=== PATIENT | male | born 1975 | race Caucasian/White ===

== ENCOUNTER 2016-05-28 14:05 | Emergency (ER) | payer OTHER ==
[~2016-05-28] VITALS: Ht 165.1 cm; Wt 59.4 kg
[~2016-05-28 14:05] MED LIST: ABILIFY10 MG PO; ALPRAZOLAM0.5 MG PO; ALPRAZOLAM1 MG PO; ATIVAN1 MG PO; Atarax,Vistaril PO; CLEOCIN150 MG PO; CLINDAMYCIN HC150 MG PO; CLINDAMYCIN HC300 MG PO; CYCLOBENZAPRINE10 MG PO; ENDOCET 5-3251 EACH PO; Keflex PO; LOPRESSOR25 MG PO; MOTRIN600 MG PO; NAPROSYN500 MG PO; NORCO 5/3251 TABLET PO; NORVASC5 MG PO; PERCOCET 5-3251 EACH PO; PERCOCET 5/31 TABLET PO; SERTRALINE HCL100 MG PO; ULTRAM50 MG PO; VIBRAMYCIN100 MG PO; VICODIN ES 71 TABLET PO; XANAX0.5 MG PO; XANAX1 MG PO; Xanax PO; oxyCODONE PO
[2016-05-28 15:24] LABS: CHLORIDE 101 mEq/L (99-109); POTASSIUM 4.5 mEq/L (3.7-5.4); SODIUM 140 mEq/L (136-147)
[2016-05-28 15:26] LABS: GLUCOSE 108 mg/dL (70-99)
[2016-05-28 15:28] LABS: ANION GAP 12 MEQ/L (2-14)
[2016-05-28 15:30] LABS: GFR ESTIMATE (CALCULATED) > 59 mL/min/
[2016-05-28 15:31] LABS: UREA NITROGEN (BUN) 13 mg/dL (9-23)
[2016-05-28 15:33] LABS: CREATINE KINASE 126 IU/L (1-294)
[2016-05-28] MEDS ORDERED: INDOCIN25 MG PO (15:42)
[2016-05-28 15:58] VITALS: BP 126/72
== END 2016-05-28 15:59 | disposition home or self-care (01) ==
LOC: EME 14:05
PROVIDERS: Physician Assistant
DX: M54.16 Radiculopathy, lumbar region (principal); I10 Essential (primary) hypertension; F17.200 Nicotine dependence, unspecified, uncomplicated; Z88.6 Allergy status to analgesic agent
CPT/HCPCS: 72100; 80048; 82550; 99281; 99284; J1885

== ENCOUNTER 2016-07-03 13:10 | Emergency (ER) | payer OTHER ==
[~2016-07-03] VITALS: Ht 165.1 cm; Wt 61.7 kg
[~2016-07-03 13:10] MED LIST changes: +INDOCIN25 MG PO
[2016-07-03 14:55] LABS: EOSINOPHIL (%) 1.7 % (0-5); EOSINOPHIL COUNT 0.1 K/uL (0-0.3); HEMATOCRIT 41.1 % (38.0-50.0); IMMATURE GRANULOCYTE (%) 0.1 % (0.0-0.7); IMMATURE GRANULOCYTE COUNT 0.1 K/uL; LYMPHOCYTE COUNT 2.1 K/uL (1.0-2.8); MCH 32.8 PG (29.0-34.0); MCHC 34.1 G/DL (30.0-36.0); MCV 96.3 FL (86-99); MEAN PLAT.VOLUME 9.4 uM^3 (9.0-12.4); MONOCYTE (%) 7.9 % (3-12); MONOCYTE COUNT 0.6 K/uL (0-0.8); NEUTROPHIL (%) 60.7 % (45-76); NEUTROPHIL COUNT 4.3 K/uL (1.8-6.4); PLATELET COUNT 221 K/uL (156-360); RED BLOOD COUNT 4.27 M/uL (4.00-5.50); WHITE BLOOD COUNT 7.1 K/uL (4.1-10.2)
[2016-07-03 15:01] LABS: ADD MIUA? YES; BILIRUBIN NEGATIVE; BLOOD NEGATIVE; COLOR YELLOW ((YELLOW)); GLUCOSE (STRIP) NEGATIVE; KETONES NEGATIVE; LEUKOCYTES NEGATIVE; NITRITE NEGATIVE; PROTEIN (STRIP) NEGATIVE; SPECIFIC GRAVITY 1.016 (1.000-1.030); UROBILINOGEN 0.2 MG/DL (0.2-1.0)
[2016-07-03 15:04] LABS: CHLORIDE 103 mEq/L (99-109); POTASSIUM 4.7 mEq/L (3.7-5.4); SODIUM 141 mEq/L (136-147)
[2016-07-03 15:06] LABS: GLUCOSE 114 mg/dL (70-99)
[2016-07-03 15:08] LABS: ANION GAP 7 MEQ/L (2-14); TOTAL BILIRUBIN 0.5 mg/dL (0.0-1.0)
[2016-07-03 15:09] LABS: AMPHETAMINE NEGATIVE (500 ng/mL); BENZODIAZEPINES NEGATIVE (150 ng/mL); COCAINE NEGATIVE (150 ng/mL); METHADONE PRESUMPTIVE POSITIVE (200 ng/mL); METHAMPHETAMINE NEGATIVE (500 ng/mL); OPIATES (MORPHINE) NEGATIVE (100 ng/mL); PHENCYCLIDINE NEGATIVE (25 ng/mL); THC CANNABINOIDS NEGATIVE (50 ng/mL); TRICYCLIC ANTIDEPRESSANTS NEGATIVE (300 ng/mL)
[2016-07-03 15:09] LABS: SERUM ETHYL ALCOHOL < 10 mg/dL
[2016-07-03 15:10] LABS: BARBITURATES NEGATIVE (200 ng/mL); INTERNAL CONTROLS VALID? YES; OXYCODONE NEGATIVE (100 ng/mL); PROPOXYPHENE NEGATIVE (300 ng/mL)
[2016-07-03 15:10] LABS: GFR ESTIMATE (CALCULATED) > 59 mL/min/
[2016-07-03 15:11] LABS: ALKALINE PHOSPHATASE 85 IU/L (3-129)
[2016-07-03 15:12] LABS: UREA NITROGEN (BUN) 10 mg/dL (9-23)
[2016-07-03 15:14] LABS: SALICYLATE < 5.0 MG/DL (15-30)
[2016-07-03 15:16] LABS: TROP-I INTERPRETATION NEGATIVE; TROPONIN-I < 0.01 ng/mL (0.0-0.30)
[2016-07-03 15:23] LABS: BACTERIA NONE SEEN /HPF; EPITHELIAL CELLS RARE /HPF; MUCUS TRACE /LPF; RED BLOOD CELLS 0-5 /HPF (0-5); UCUL ADDED? NO; WHITE BLOOD CELLS 0-5 /HPF (0-5)
[2016-07-03 15:44] VITALS: BP 128/76
== END 2016-07-03 15:45 | disposition home or self-care (01) ==
LOC: EME 13:10
PROVIDERS: Physician Assistant
DX: F41.9 Anxiety disorder, unspecified (principal); I10 Essential (primary) hypertension; F17.200 Nicotine dependence, unspecified, uncomplicated
CPT/HCPCS: 71020; 80053; 81003; 84484; 85025; 93005; 99281; 99284; G0480

== ENCOUNTER 2016-10-23 11:02 | Emergency (ER) | payer OTHER ==
[~2016-10-23] VITALS: Ht 165.1 cm; Wt 56.7 kg
[2016-10-23] MEDS ORDERED: BACTRIM,SEPT1 TABLET PO (12:29)
[2016-10-23 12:48] VITALS: BP 119/78
== END 2016-10-23 12:51 | disposition home or self-care (01) ==
LOC: EME 11:02
DX: L03.113 Cellulitis of right upper limb (principal); S60.221A Contusion of right hand, initial encounter; W18.30XA Fall on same level, unspecified, initial encounter; I10 Essential (primary) hypertension; F17.200 Nicotine dependence, unspecified, uncomplicated
CPT/HCPCS: 73130; 99281; 99283

== ENCOUNTER 2016-11-17 14:13 | Emergency (ER) | payer OTHER ==
[~2016-11-17] VITALS: Ht 165.1 cm; Wt 63.5 kg
[~2016-11-17 14:13] MED LIST changes: +BACTRIM,SEPT1 TABLET PO
[2016-11-17 14:38] VITALS: BP 131/80
== END 2016-11-17 14:39 | disposition home or self-care (01) ==
LOC: EME 14:13
DX: S01.81XA Laceration without foreign body of other part of head, initial encounter (principal); S61.211A Laceration without foreign body of left index finger without damage to nail, initial encounter; X99.8XXA Assault by other sharp object, initial encounter; Y93.01 Activity, walking, marching and hiking; Y92.410 Unspecified street and highway as the place of occurrence of the external cause
CPT/HCPCS: 99281; 99283

== ENCOUNTER 2016-12-14 14:49 | Emergency (ER) | payer OTHER ==
[~2016-12-14] VITALS: Ht 165.1 cm; Wt 58.0 kg
[2016-12-14 15:52] LABS: HEMATOCRIT 40.8 % (38.0-50.0); MCH 33.4 PG (29.0-34.0); MCHC 34.1 G/DL (30.0-36.0); MCV 98.1 FL (86-99); MEAN PLAT.VOLUME 10.2 uM^3 (9.0-12.4); PLATELET COUNT 222 K/uL (156-360); RBC DIS.WIDTH-CV 13.1 % (11.8-14.6); RED BLOOD COUNT 4.16 M/uL (4.00-5.50); WHITE BLOOD COUNT 6.4 K/uL (4.1-10.2)
[2016-12-14 16:09] LABS: CHLORIDE 107 mEq/L (99-109); POTASSIUM 3.6 mEq/L (3.7-5.4); SODIUM 141 mEq/L (136-147)
[2016-12-14 16:10] LABS: GLUCOSE 81 mg/dL (70-99)
[2016-12-14 16:12] LABS: ANION GAP 9 MEQ/L (2-14)
[2016-12-14 16:14] LABS: GFR ESTIMATE (CALCULATED) > 59 mL/min/; TROP-I INTERPRETATION NEGATIVE; TROPONIN-I < 0.01 ng/mL (0.0-0.30)
[2016-12-14 16:15] LABS: UREA NITROGEN (BUN) 7 mg/dL (9-23)
[2016-12-14] MEDS ORDERED: ATARAX,VISTARIL25 MG PO (17:13)
[2016-12-14 17:24] VITALS: BP 115/78
== END 2016-12-14 17:32 | disposition home or self-care (01) ==
LOC: EME 14:49
PROVIDERS: Emergency Medicine
DX: F43.10 Post-traumatic stress disorder, unspecified (principal); R55 Syncope and collapse; F41.1 Generalized anxiety disorder; F32.9 Major depressive disorder, single episode, unspecified; T42.4X6A Underdosing of benzodiazepines, initial encounter; Z91.128 Patient's intentional underdosing of medication regimen for other reason; F17.200 Nicotine dependence, unspecified, uncomplicated; Z88.6 Allergy status to analgesic agent
CPT/HCPCS: 71010; 80048; 84484; 85027; 90839; 93005; 99281; 99285; J7030

== ENCOUNTER 2016-12-23 09:50 | Emergency (ER) | payer OTHER ==
[~2016-12-23] VITALS: Ht 165.1 cm; Wt 55.2 kg
[~2016-12-23 09:50] MED LIST changes: +ATARAX,VISTARIL25 MG PO
[2016-12-23 11:35] LABS: EOSINOPHIL (%) 1.6 % (0-5); EOSINOPHIL COUNT 0.1 K/uL (0-0.3); IMMATURE GRANULOCYTE (%) 0.1 % (0.0-0.7); INSTRUMENT ABS NEUTROPHIL CT 3.6 K/uL; LYMPHOCYTE COUNT 2.8 K/uL (1.0-2.8); MCH 33.3 PG (29.0-34.0); MCHC 34.4 G/DL (30.0-36.0); MCV 96.8 FL (86-99); MEAN PLAT.VOLUME 9.8 uM^3 (9.0-12.4); MONOCYTE (%) 7.7 % (3-12); MONOCYTE COUNT 0.5 K/uL (0-0.8); NEUTROPHIL COUNT 3.6 K/uL (1.8-6.4); PLATELET COUNT 276 K/uL (156-360); RBC DIS.WIDTH-CV 12.7 % (11.8-14.6); RBC DIS.WIDTH-SD 45.5 % (39-53); RED BLOOD COUNT 4.44 M/uL (4.00-5.50); WHITE BLOOD COUNT 7.1 K/uL (4.1-10.2)
[2016-12-23 11:46] LABS: CHLORIDE 100 mEq/L (99-109); POTASSIUM 4.2 mEq/L (3.7-5.4); SODIUM 137 mEq/L (136-147)
[2016-12-23 11:48] LABS: GLUCOSE 103 mg/dL (70-99)
[2016-12-23 11:49] LABS: ANION GAP 10 MEQ/L (2-14)
[2016-12-23 11:50] LABS: TOTAL BILIRUBIN 0.6 mg/dL (0.0-1.0)
[2016-12-23 11:51] LABS: ALKALINE PHOSPHATASE 63 IU/L (3-129)
[2016-12-23 11:52] LABS: GFR ESTIMATE (CALCULATED) > 59 mL/min/
[2016-12-23 11:53] LABS: UREA NITROGEN (BUN) 23 mg/dL (9-23)
[2016-12-23 11:55] LABS: TROP-I INTERPRETATION NEGATIVE; TROPONIN-I < 0.01 ng/mL (0.0-0.30)
[2016-12-23 12:29] VITALS: BP 107/67
[2016-12-23] MEDS ORDERED: ZOFRAN ODT4 MG PO (12:30)
[2016-12-23] MEDS ORDERED: VENTOLIN HFA18 GM IH (12:30)
[2016-12-23] MEDS ORDERED: PREDNISONE50 MG PO (12:30)
== END 2016-12-23 12:29 | disposition home or self-care (01) ==
LOC: EME 09:50
PROVIDERS: Physician Assistant Medical
DX: J98.01 Acute bronchospasm (principal); R11.10 Vomiting, unspecified; J45.909 Unspecified asthma, uncomplicated; I10 Essential (primary) hypertension; F17.200 Nicotine dependence, unspecified, uncomplicated
CPT/HCPCS: 71020; 80053; 84484; 85025; 93005; 99281; 99283; J2405; J7030

== ENCOUNTER 2017-02-13 14:21 | Emergency (ER) | payer OTHER ==
[~2017-02-13] VITALS: Ht 165.1 cm; Wt 57.5 kg
[~2017-02-13 14:21] MED LIST changes: +PREDNISONE50 MG PO; +VENTOLIN HFA18 GM IH; +ZOFRAN ODT4 MG PO
[2017-02-13 14:48] VITALS: BP 117/75
[2017-02-13] MEDS ORDERED: NEURONTIN300 MG PO (17:20)
== END 2017-02-13 17:43 | disposition home or self-care (01) ==
LOC: EME 14:21
DX: S00.81XA Abrasion of other part of head, initial encounter (principal); S70.312A Abrasion, left thigh, initial encounter; S80.811A Abrasion, right lower leg, initial encounter; X99.1XXA Assault by knife, initial encounter; F17.200 Nicotine dependence, unspecified, uncomplicated
CPT/HCPCS: 99281; 99284; Q0177

== ENCOUNTER 2017-05-28 18:42 | Emergency (ER) | payer OTHER ==
[~2017-05-28] VITALS: Ht 165.1 cm; Wt 58.8 kg
[~2017-05-28 18:42] MED LIST changes: +NEURONTIN300 MG PO
[2017-05-28] MEDS ORDERED: MOTRIN600 MG PO (21:01)
[2017-05-28 21:30] VITALS: BP 108/70
[2017-05-29] MEDS ORDERED: MOTRIN600 MG PO (15:04)
== END 2017-05-28 21:39 | disposition home or self-care (01) ==
LOC: EME 18:42
DX: S00.83XA Contusion of other part of head, initial encounter (principal); S00.81XA Abrasion of other part of head, initial encounter; M25.531 Pain in right wrist; M79.641 Pain in right hand; X99.8XXA Assault by other sharp object, initial encounter; Y07.9 Unspecified perpetrator of maltreatment and neglect; I10 Essential (primary) hypertension; F32.9 Major depressive disorder, single episode, unspecified; F41.9 Anxiety disorder, unspecified; F17.200 Nicotine dependence, unspecified, uncomplicated; Z88.5 Allergy status to narcotic agent; Z88.8 Allergy status to other drugs, medicaments and biological substances
CPT/HCPCS: 70450; 70486; 72125; 73110; 73130; 99281; 99284

== ENCOUNTER 2017-05-29 10:59 | Emergency (ER) | payer OTHER ==
[~2017-05-29] VITALS: Ht 165.1 cm; Wt 61.6 kg
[2017-05-29] MEDS ORDERED: MOTRIN600 MG PO (15:04)
[2017-05-29 15:19] VITALS: BP 116/93
== END 2017-05-29 15:20 | disposition home or self-care (01) ==
LOC: EME 10:59
DX: M25.531 Pain in right wrist (principal); Y09 Assault by unspecified means; F41.9 Anxiety disorder, unspecified; F43.10 Post-traumatic stress disorder, unspecified; Z88.5 Allergy status to narcotic agent
CPT/HCPCS: 99281; 99284

== ENCOUNTER 2017-06-29 06:18 | Emergency (ER) | payer OTHER ==
[~2017-06-29] VITALS: Ht 165.1 cm; Wt 57.1 kg
[2017-06-29 08:23] LABS: BASOPHIL (%) 0.3 % (0-1); EOSINOPHIL (%) 0.9 % (0-5); EOSINOPHIL COUNT 0.1 K/uL (0-0.3); HEMATOCRIT 40.6 % (38.0-50.0); HEMOGLOBIN 13.9 G/DL (12.5-16.6); IMMATURE GRANULOCYTE (%) 0.2 % (0.0-0.7); LYMPHOCYTE (%) 11.6 % (15-42); LYMPHOCYTE COUNT 1.2 K/uL (1.0-2.8); MCH 33.4 PG (29.0-34.0); MCHC 34.2 G/DL (30.0-36.0); MCV 97.6 FL (86-99); MONOCYTE (%) 7.2 % (3-12); MONOCYTE COUNT 0.8 K/uL (0-0.8); NEUTROPHIL (%) 79.8 % (45-76); NEUTROPHIL COUNT 8.4 K/uL (1.8-6.4); PLATELET COUNT 182 K/uL (156-360); RBC DIS.WIDTH-SD 46.7 % (39-53); RED BLOOD COUNT 4.16 M/uL (4.00-5.50); WHITE BLOOD COUNT 10.5 K/uL (4.1-10.2)
[2017-06-29 08:35] LABS: CHLORIDE 108 mEq/L (99-109); POTASSIUM 4.1 mEq/L (3.7-5.4); SODIUM 142 mEq/L (136-147)
[2017-06-29 08:36] LABS: GLUCOSE 106 mg/dL (70-99)
[2017-06-29 08:40] LABS: CREATININE 0.7 mg/dL (0.6-1.3); GFR ESTIMATE (CALCULATED) > 59 mL/min/ (58.99-99999); SERUM ETHYL ALCOHOL < 10 mg/dL
[2017-06-29 08:41] LABS: UREA NITROGEN (BUN) 13 mg/dL (9-23)
[2017-06-29 08:43] LABS: CREATINE KINASE 123 IU/L (1-294)
[2017-06-29 08:48] LABS: TROP-I INTERPRETATION NEGATIVE; TROPONIN-I < 0.01 ng/mL (0.0-0.30)
[2017-06-29 09:18] LABS: AMPHETAMINE NEGATIVE (500 ng/mL); BENZODIAZEPINES PRESUMPTIVE POSITIVE (150 ng/mL); COCAINE NEGATIVE (150 ng/mL); METHAMPHETAMINE NEGATIVE (500 ng/mL); OPIATES (MORPHINE) NEGATIVE (100 ng/mL); PHENCYCLIDINE NEGATIVE (25 ng/mL); THC CANNABINOIDS NEGATIVE (50 ng/mL)
[2017-06-29 09:19] LABS: BARBITURATES NEGATIVE (200 ng/mL); BUPRENORPHINE NEGATIVE (10 ng/mL); METHADONE PRESUMPTIVE POSITIVE (200 ng/mL); OXYCODONE NEGATIVE (100 ng/mL); PROPOXYPHENE NEGATIVE (300 ng/mL); TRICYCLIC ANTIDEPRESSANTS PRESUMPTIVE POSITIVE (300 ng/mL)
[2017-06-29 11:28] LABS: BENZODIAZEPINES, URINE SCREEN POSITIVE (200 ng/mL)
[2017-06-29 13:53] VITALS: BP 101/73
== END 2017-06-29 13:58 | disposition home or self-care (01) ==
LOC: EME → EDBD 06:18 → EME 06:18
PROVIDERS: Emergency Medicine
DX: S00.212A Abrasion of left eyelid and periocular area, initial encounter (principal); W01.0XXA Fall on same level from slipping, tripping and stumbling without subsequent striking against object, initial encounter; I10 Essential (primary) hypertension; F32.9 Major depressive disorder, single episode, unspecified; F41.9 Anxiety disorder, unspecified; F43.10 Post-traumatic stress disorder, unspecified; F17.200 Nicotine dependence, unspecified, uncomplicated; Z88.5 Allergy status to narcotic agent
CPT/HCPCS: 70450; 80048; 82550; 84484; 84999; 85025; G0480

== ENCOUNTER 2017-08-18 13:11 | Emergency (ER) | payer OTHER ==
[~2017-08-18] VITALS: Ht 165.1 cm; Wt 61.1 kg
[2017-08-18 13:52] LABS: HEMATOCRIT 40.7 % (38.0-50.0); MCHC 34.4 G/DL (30.0-36.0); MCV 98.8 FL (86-99); PLATELET COUNT 248 K/uL (156-360); RBC DIS.WIDTH-CV 13.5 % (11.8-14.6); RBC DIS.WIDTH-SD 49.7 % (39-53); RED BLOOD COUNT 4.12 M/uL (4.00-5.50); WHITE BLOOD COUNT 10.3 K/uL (4.1-10.2)
[2017-08-18 14:01] LABS: CHLORIDE 103 mEq/L (99-109); POTASSIUM 4.3 mEq/L (3.7-5.4); SODIUM 140 mEq/L (136-147)
[2017-08-18 14:03] LABS: GLUCOSE 107 mg/dL (70-99)
[2017-08-18 14:07] LABS: CREATININE 0.8 mg/dL (0.6-1.3); GFR ESTIMATE (CALCULATED) > 59 mL/min/ (58.99-99999); UREA NITROGEN (BUN) 7 mg/dL (9-23)
[2017-08-18 16:31] LABS: ALBUMIN 4.2 g/dL (3.2-4.8)
[2017-08-18 16:33] LABS: APPEARANCE CLEAR ((CLEAR)); BILIRUBIN NEGATIVE; BLOOD NEGATIVE; COLOR YELLOW ((YELLOW)); GLUCOSE (STRIP) NEGATIVE; KETONES NEGATIVE; LEUKOCYTES NEGATIVE; NITRITE NEGATIVE; PROTEIN (STRIP) NEGATIVE; SPECIFIC GRAVITY 1.008 (1.000-1.030); UCUL ADDED? NO
[2017-08-18 16:34] LABS: TOTAL PROTEIN 7.2 g/dL (6.4-8.3)
[2017-08-18 16:35] LABS: TOTAL BILIRUBIN 0.1 mg/dL (0.0-1.0)
[2017-08-18 16:36] LABS: ALKALINE PHOSPHATASE 65 IU/L (3-129)
[2017-08-18 16:39] LABS: AST (GOT) 39 IU/L (2-34); DIRECT BILIRUBIN 0.1 mg/dL (0.0-0.3)
[2017-08-18 16:40] LABS: ALT (GPT) 49 IU/L (3-49)
[2017-08-18 17:55] VITALS: BP 121/79
== END 2017-08-18 17:55 | disposition home or self-care (01) ==
LOC: EME 13:11
DX: S61.201A Unspecified open wound of left index finger without damage to nail, initial encounter (principal); X17.XXXA Contact with hot engines, machinery and tools, initial encounter; Y99.0 Civilian activity done for income or pay; R19.7 Diarrhea, unspecified; Z71.6 Tobacco abuse counseling; I10 Essential (primary) hypertension; F41.9 Anxiety disorder, unspecified; F32.9 Major depressive disorder, single episode, unspecified; F43.10 Post-traumatic stress disorder, unspecified; F17.200 Nicotine dependence, unspecified, uncomplicated; Z88.5 Allergy status to narcotic agent; Z88.8 Allergy status to other drugs, medicaments and biological substances
CPT/HCPCS: 73140; 76705; 80048; 80076; 81003; 85027; 99281; 99284; J1885

== ENCOUNTER 2017-09-09 10:07 | Observation (INO) | payer OTHER ==
[~2017-09-09] VITALS: Ht 165.1 cm; Wt 62.5 kg
[2017-09-09 13:48] LABS: CHLORIDE 107 mEq/L (99-109); POTASSIUM 3.7 mEq/L (3.7-5.4); SODIUM 142 mEq/L (136-147)
[2017-09-09 13:50] LABS: GLUCOSE 103 mg/dL (70-99)
[2017-09-09 13:54] LABS: CREATININE 0.7 mg/dL (0.6-1.3); GFR ESTIMATE (CALCULATED) > 59 mL/min/ (58.99-99999)
[2017-09-09 13:55] LABS: UREA NITROGEN (BUN) 13 mg/dL (9-23)
[2017-09-09 13:58] LABS: HEMATOCRIT 39.8 % (38.0-50.0); HEMOGLOBIN 13.8 G/DL (12.5-16.6); MCH 33.1 PG (29.0-34.0); MCHC 34.7 G/DL (30.0-36.0); MCV 95.4 FL (86-99); RBC DIS.WIDTH-CV 13.2 % (11.8-14.6); RBC DIS.WIDTH-SD 46.7 % (39-53); RED BLOOD COUNT 4.17 M/uL (4.00-5.50)
[2017-09-09 15:00] LABS: PLAT.SUFFICIENCY ADEQUATE
[2017-09-09 15:12] LABS: PLATELET COUNT 170 K/uL (156-360)
[2017-09-09 15:25] LABS: PHENCYCLIDINE NEGATIVE (25 ng/mL); THC CANNABINOIDS NEGATIVE (50 ng/mL)
[2017-09-09 15:26] LABS: ALBUMIN 3.9 g/dL (3.2-4.8)
[2017-09-09 15:26] LABS: AMPHETAMINE NEGATIVE (500 ng/mL); BARBITURATES NEGATIVE (200 ng/mL); BENZODIAZEPINES PRESUMPTIVE POSITIVE (150 ng/mL); BUPRENORPHINE NEGATIVE (10 ng/mL); COCAINE NEGATIVE (150 ng/mL); METHADONE PRESUMPTIVE POSITIVE (200 ng/mL); METHAMPHETAMINE NEGATIVE (500 ng/mL); OPIATES (MORPHINE) NEGATIVE (100 ng/mL); OXYCODONE NEGATIVE (100 ng/mL); PROPOXYPHENE NEGATIVE (300 ng/mL); TRICYCLIC ANTIDEPRESSANTS NEGATIVE (300 ng/mL)
[2017-09-09 15:29] LABS: TOTAL PROTEIN 6.6 g/dL (6.4-8.3)
[2017-09-09 15:31] LABS: TOTAL BILIRUBIN 0.4 mg/dL (0.0-1.0)
[2017-09-09 15:32] LABS: ALKALINE PHOSPHATASE 66 IU/L (3-129)
[2017-09-09 15:34] LABS: AST (GOT) 31 IU/L (2-34); DIRECT BILIRUBIN 0.1 mg/dL (0.0-0.3)
[2017-09-09 15:35] LABS: ALT (GPT) 30 IU/L (3-49); CREATINE KINASE 108 IU/L (1-294)
[2017-09-09 16:09] LABS: BENZODIAZEPINES, URINE SCREEN POSITIVE (200 ng/mL)
[2017-09-09 16:11] VITALS: BP 103/64
[2017-09-09 17:38] LABS: SERUM ETHYL ALCOHOL < 10 mg/dL
[2017-09-09 20:05] VITALS: BP 102/67
[2017-09-09 23:24] VITALS: BP 118/64
[2017-09-10 03:53] VITALS: BP 142/84
[2017-09-10 07:23] VITALS: BP 116/74
[2017-09-10] MEDS ORDERED: ZOLOFT100 MG PO (09:27)
[2017-09-10] MEDS ORDERED: ATIVAN1 MG PO (09:27)
[2017-09-10] MEDS ORDERED: NEURONTIN400 MG PO (09:28)
[2017-09-10 11:12] VITALS: BP 109/69
[2017-09-10 11:33] LABS: D-DIMER ELISA < 150.00 ng/mLDDU (<230)
== END 2017-09-10 11:26 | disposition left against medical advice (07) ==
LOC: EME 10:07 → EDOF 15:06 → ENRESERV 15:10 → 4SOUTH 15:56
PROVIDERS: Family Medicine; Hospitalist
DX: T65.94XA Toxic effect of unspecified substance, undetermined, initial encounter (principal); R09.02 Hypoxemia; F43.10 Post-traumatic stress disorder, unspecified; F17.200 Nicotine dependence, unspecified, uncomplicated; F32.9 Major depressive disorder, single episode, unspecified; Z88.5 Allergy status to narcotic agent; Z88.8 Allergy status to other drugs, medicaments and biological substances
CPT/HCPCS: 71045; 80048; 80076; 82550; 84999; 85027; 85379; 93005; 94799; G0378; G0480; J1644; J2310; J7040

== ENCOUNTER 2017-09-27 13:35 | Emergency (ER) | payer OTHER ==
[~2017-09-27] VITALS: Ht 165.1 cm; Wt 60.7 kg
[~2017-09-27 13:35] MED LIST changes: +NEURONTIN400 MG PO; +ZOLOFT100 MG PO
[2017-09-27 15:04] LABS: HEMATOCRIT 42.4 % (38.0-50.0); HEMOGLOBIN 14.9 G/DL (12.5-16.6); MCH 33.8 PG (29.0-34.0); MCHC 35.1 G/DL (30.0-36.0); MCV 96.1 FL (86-99); RBC DIS.WIDTH-CV 13.8 % (11.8-14.6); RBC DIS.WIDTH-SD 49.1 % (39-53); RED BLOOD COUNT 4.41 M/uL (4.00-5.50); WHITE BLOOD COUNT 9.5 K/uL (4.1-10.2)
[2017-09-27 15:14] LABS: ALBUMIN 4.4 g/dL (3.2-4.8); CHLORIDE 103 mEq/L (99-109); PLATELET COUNT 280 K/uL (156-360); POTASSIUM 4.8 mEq/L (3.7-5.4); SODIUM 138 mEq/L (136-147)
[2017-09-27 15:17] LABS: GLUCOSE 89 mg/dL (70-99); TOTAL PROTEIN 7.6 g/dL (6.4-8.3)
[2017-09-27 15:18] LABS: TOTAL BILIRUBIN 0.3 mg/dL (0.0-1.0)
[2017-09-27 15:20] LABS: ALKALINE PHOSPHATASE 71 IU/L (3-129); CREATININE 0.8 mg/dL (0.6-1.3); GFR ESTIMATE (CALCULATED) > 59 mL/min/ (58.99-99999)
[2017-09-27 15:21] LABS: UREA NITROGEN (BUN) 15 mg/dL (9-23)
[2017-09-27 15:22] LABS: AST (GOT) 16 IU/L (2-34)
[2017-09-27 15:23] LABS: ALT (GPT) 16 IU/L (3-49)
[2017-09-27 15:25] LABS: APPEARANCE CLEAR ((CLEAR)); BILIRUBIN NEGATIVE; BLOOD NEGATIVE; COLOR YELLOW ((YELLOW)); GLUCOSE (STRIP) NEGATIVE; KETONES NEGATIVE; LEUKOCYTES NEGATIVE; NITRITE NEGATIVE; PROTEIN (STRIP) NEGATIVE; SPECIFIC GRAVITY 1.017 (1.000-1.030); UCUL ADDED? NO; UROBILINOGEN 0.2 MG/DL (0.2-1.0)
[2017-09-27 15:42] LABS: AMPHETAMINE NEGATIVE (500 ng/mL); BARBITURATES NEGATIVE (200 ng/mL); BENZODIAZEPINES NEGATIVE (150 ng/mL); BUPRENORPHINE NEGATIVE (10 ng/mL); COCAINE NEGATIVE (150 ng/mL); METHADONE PRESUMPTIVE POSITIVE (200 ng/mL); METHAMPHETAMINE NEGATIVE (500 ng/mL); OPIATES (MORPHINE) NEGATIVE (100 ng/mL); OXYCODONE NEGATIVE (100 ng/mL); PHENCYCLIDINE NEGATIVE (25 ng/mL); PROPOXYPHENE NEGATIVE (300 ng/mL); THC CANNABINOIDS NEGATIVE (50 ng/mL); TRICYCLIC ANTIDEPRESSANTS NEGATIVE (300 ng/mL)
[2017-09-27] MEDS ORDERED: FLEXERIL10 MG PO (15:52)
[2017-09-27 16:04] VITALS: BP 128/84
== END 2017-09-27 16:05 | disposition home or self-care (01) ==
LOC: EME 13:35
PROVIDERS: Nurse Practitioner Family
DX: R07.89 Other chest pain (principal); R10.9 Unspecified abdominal pain; R04.2 Hemoptysis; F17.200 Nicotine dependence, unspecified, uncomplicated
CPT/HCPCS: 71046; 80053; 81003; 85027; 93005; 99281; 99284

== ENCOUNTER 2017-11-02 08:18 | Emergency (ER) | payer OTHER ==
[~2017-11-02] VITALS: Ht 165.1 cm; Wt 61.0 kg
[~2017-11-02 08:18] MED LIST changes: +FLEXERIL10 MG PO
[2017-11-02] MEDS ORDERED: NAPROSYN500 MG PO (10:27)
[2017-11-02] MEDS ORDERED: KEFLEX500 MG PO (10:27)
[2017-11-02 11:20] VITALS: BP 138/76
== END 2017-11-02 11:34 | disposition home or self-care (01) ==
LOC: EME 08:18
DX: S51.812A Laceration without foreign body of left forearm, initial encounter (principal); S41.111A Laceration without foreign body of right upper arm, initial encounter; S60.222A Contusion of left hand, initial encounter; X99.1XXA Assault by knife, initial encounter; Z23 Encounter for immunization; F32.9 Major depressive disorder, single episode, unspecified; F41.9 Anxiety disorder, unspecified; I10 Essential (primary) hypertension; Z88.5 Allergy status to narcotic agent; F17.200 Nicotine dependence, unspecified, uncomplicated
CPT/HCPCS: 73060; 73090; 73130; 99281; 99284; Q0177